=== PATIENT | female | born 1970 | race Hispanic/Latino ===

== ENCOUNTER 2018-07-26 05:05 | Emergency (ER) | payer OTHER ==
[~2018-07-26] VITALS: Ht 167.6 cm; Wt 73.6 kg
[~2018-07-26 05:05] MED LIST: AMOXICILLIN500 MG PO; BENADRYL 50MG C50 MG OR; BENADRYL25 M1 OR; EPIPEN0.3 MG IM; FLEXERIL OR; KEFLEX250 MG OR; LORTAB 5 OR; LORTAB 7.5 OR; MEDDOSEPAK OR; MEDDOSEPAK PO; NAPROSYN500 MG OR; NO HOMEMEDS; NO MEDS; PENICILLN VK500 MG OR; PERCOCET 5/325M1 TAB OR; PREDNISONE20 MG OR; REGLAN10 MG PO; TRAMADOL HCL50 MG OR; ZOFRAN4 MG OR; [UNRECOGNIZED DRUG - REMARK]; [UNRECOGNIZED DRUG - REMARK]
[2018-07-26 06:03] LABS: HEMATOCRIT 41.3 % (37.0-47.0); HEMOGLOBIN 12.8 g/dl (12.0-16.0); IMMATURE GRANULOCYTES 0.5 % (0.0-5.0); MEAN CELL VOLUME 84.8 fL CALC (80.0-100.0); MEAN CORPUSCULAR HGB 26.3 pG CALC (26.0-32.0); NEUT# 6.11 thou/uL (2.00-7.15); RED BLOOD COUNT 4.87 mill/uL (4.20-5.60); RED CELL DISTRI WIDTH 15.1 % (11.5-15.5)
[2018-07-26 06:04] LABS: URINE BILIRUBIN - DIPSTICK NEGATIVE (NEGATIVE); URINE BLOOD DIPSTICK SMALL (NEGATIVE); URINE COLOR YELLOW; URINE GLUCOSE - DIPSTICK NEGATIVE (NEGATIVE); URINE KETONE NEGATIVE (NEGATIVE); URINE NITRITE - DIPSTICK NEGATIVE (Negative); URINE PROTEIN - DIPSTICK NEGATIVE (NEG-TRACE); URINE UROBILINOGEN - DIPSTICK 0.2 E.U./dL (0.2)
[2018-07-26 06:29] LABS: URINE LEUK ESTERASE SMALL (NEGATIVE); URINE SQUAMOUS EPITHELIAL CELL FEW EPI/hpf (0-FEW)
[2018-07-26 06:30] LABS: ALBUMIN 4.7 g/dL (3.2-5.0); ALKALINE PHOSPHATASE 57 u/l (38-126); AMYLASE 33 u/l (30-110); ANION GAP 15 (6-22 (CALC)); BUN 10 mg/dL (7-17); BUN/CREATININE RATIO 19 (12-20 (CALC)); CARBON DIOXIDE 25 mmol/l (22-30); CHLORIDE 104 mmol/l (95-108); CREATININE 0.5 mg/dL (0.5-1.0); GFR > 60 ML/MIN (>=60 (CALC)); GFR FOR AFR.AMER. > 60 ML/MIN (>=60 (CALC)); LIPASE 39 u/l (23-300); SODIUM 139 mmol/l (137-146); TOTAL PROTEIN 8.1 g/dL (6.3-8.2)
[2018-07-26 06:33] LABS: BILIRUBIN, TOTAL 0.7 mg/dL (0.0-1.4); SGOT/AST 41 u/l (14-36)
[2018-07-26 07:19] LABS: BARBITURATES NEGATIVE (NEGATIVE); COCAINE NEGATIVE (NEGATIVE); METHADONE NEGATIVE (NEGATIVE); OXCYCODONE NEGATIVE (NEGATIVE); TETRAHYDROCANNABIONOL NEGATIVE (NEGATIVE); TRICYLIC ANTIDEPRESSANTS NEGATIVE (NEGATIVE)
[2018-07-26] MEDS ORDERED: KEFLEX500 M1 PO (07:22)
[2018-07-26] MEDS ORDERED: BENTYL10 MG PO (07:22)
[2018-07-26 07:31] VITALS: BP 109/68
== END 2018-07-26 07:34 | disposition home or self-care (01) ==
LOC: ED 05:05
PROVIDERS: Emergency Medicine
DX: N39.0 Urinary tract infection, site not specified (principal); K56.7 Ileus, unspecified; R10.12 Left upper quadrant pain; R11.2 Nausea with vomiting, unspecified; F17.210 Nicotine dependence, cigarettes, uncomplicated

== ENCOUNTER 2019-02-13 23:26 | Emergency (ER) | payer MEDICAID ==
[~2019-02-13] VITALS: Ht 167.6 cm; Wt 76.3 kg
[~2019-02-13 23:26] MED LIST changes: +BENTYL10 MG PO; +KEFLEX500 M1 PO
[2019-02-14 01:03] LABS: HEMATOCRIT 36.1 % (37.0-47.0); HEMOGLOBIN 11.5 g/dl (12.0-16.0); IMMATURE GRANULOCYTES 0.4 % (0.0-5.0); MEAN CELL VOLUME 80.6 fL CALC (80.0-100.0); MEAN CORPUSCULAR HGB 25.7 pG CALC (26.0-32.0); MEAN CORPUSCULAR HGB CONC 31.9 g/L CALC (32.0-36.0); NEUT# 5.38 thou/uL (2.00-7.15); RED BLOOD COUNT 4.48 mill/uL (4.20-5.60); RED CELL DISTRI WIDTH 15.8 % (11.5-15.5)
[2019-02-14 01:12] LABS: URINE BILIRUBIN - DIPSTICK NEGATIVE (NEGATIVE); URINE BLOOD DIPSTICK TRACE-INTACT (NEGATIVE); URINE COLOR YELLOW; URINE GLUCOSE - DIPSTICK NEGATIVE (NEGATIVE); URINE KETONE NEGATIVE (NEGATIVE); URINE LEUK ESTERASE NEGATIVE (NEGATIVE); URINE NITRITE - DIPSTICK NEGATIVE (Negative); URINE PH 6.5 (4.5-8.0); URINE PROTEIN - DIPSTICK NEGATIVE (NEG-TRACE); URINE UROBILINOGEN - DIPSTICK 0.2 E.U./dL (0.2)
[2019-02-14 01:23] LABS: ALBUMIN 4.3 g/dL (3.2-5.0); ALKALINE PHOSPHATASE 88 u/l (38-126); ANION GAP 13 (6-22 (CALC)); BUN 10 mg/dL (7-17); BUN/CREATININE RATIO 16 (12-20 (CALC)); CARBON DIOXIDE 22 mmol/l (22-30); CHLORIDE 107 mmol/l (95-108); CREATININE 0.6 mg/dL (0.5-1.0); GFR > 60 ML/MIN (>=60 (CALC)); GFR FOR AFR.AMER. > 60 ML/MIN (>=60 (CALC)); SGOT/AST 19 u/l (14-36); SODIUM 137 mmol/l (137-146); TOTAL PROTEIN 7.7 g/dL (6.3-8.2)
[2019-02-14 01:24] LABS: BILIRUBIN, TOTAL 0.2 mg/dL (0.0-1.4)
[2019-02-14] MEDS ORDERED: MEDDOSEPAK PO (01:53)
[2019-02-14] MEDS ORDERED: VISTARIL 50MG C50 M1 PO (01:53)
[2019-02-14 01:58] VITALS: BP 144/82
== END 2019-02-14 01:58 | disposition home or self-care (01) ==
LOC: ED 23:26
PROVIDERS: Emergency Medicine
DX: T78.40XA Allergy, unspecified, initial encounter (principal); F17.210 Nicotine dependence, cigarettes, uncomplicated; X58.XXXA Exposure to other specified factors, initial encounter

== ENCOUNTER 2019-02-25 | Emergency (ER) | payer MEDICAID ==
[~2019-02-25] MED LIST changes: +VISTARIL 50MG C50 M1 PO
[2019-02-25] MEDS ORDERED: SERTRALINE50 MG PO (14:41)
[2019-02-25] MEDS ORDERED: KEFLEX500 MG PO (15:07)
== END 2019-02-25 15:10 | disposition home or self-care (01) ==
DX: S30.861A Insect bite (nonvenomous) of abdominal wall, initial encounter (principal); L02.211 Cutaneous abscess of abdominal wall; F17.210 Nicotine dependence, cigarettes, uncomplicated; W57.XXXA Bitten or stung by nonvenomous insect and other nonvenomous arthropods, initial encounter; Y93.9 Activity, unspecified; Y92.009 Unspecified place in unspecified non-institutional (private) residence as the place of occurrence of the external cause

== ENCOUNTER 2019-04-15 | Emergency (ER) | payer MEDICAID ==
[~2019-04-15] MED LIST changes: +KEFLEX500 MG PO; +SERTRALINE50 MG PO
[2019-04-15 17:49] LABS: IMMATURE GRANULOCYTES 0.7 % (0.0-5.0); MEAN CELL VOLUME 82.6 fL CALC (80.0-100.0); MEAN CORPUSCULAR HGB 26.8 pG CALC (26.0-32.0); MEAN CORPUSCULAR HGB CONC 32.4 g/L CALC (32.0-36.0); NEUT# 7.7 thou/uL (2.00-7.15); RED BLOOD COUNT 4.48 mill/uL (4.20-5.60); RED CELL DISTRI WIDTH 17.5 % (11.5-15.5)
[2019-04-15 18:19] LABS: ALBUMIN 4.5 g/dL (3.2-5.0); ALKALINE PHOSPHATASE 79 u/l (38-126); ANION GAP 14 (6-22 (CALC)); BUN 7 mg/dL (7-17); BUN/CREATININE RATIO 14 (12-20 (CALC)); CARBON DIOXIDE 20 mmol/l (22-30); CHLORIDE 107 mmol/l (95-108); CREATININE 0.5 mg/dL (0.5-1.0); GFR > 60 ML/MIN (>=60 (CALC)); GFR FOR AFR.AMER. > 60 ML/MIN (>=60 (CALC)); SGOT/AST 27 u/l (14-36); SODIUM 137 mmol/l (137-146); TOTAL PROTEIN 8.3 g/dL (6.3-8.2)
[2019-04-15] MEDS ORDERED: MEDROXYPR AC10 M1 PO (18:19)
[2019-04-15] MEDS ORDERED: FERR SULFATE325 MG PO (18:19)
[2019-04-15] MEDS ORDERED: NITROFURANTOIN100 M1 PO (18:20)
[2019-04-15] MEDS ORDERED: MULTIVITAMI1 PO (18:21)
[2019-04-15 18:26] LABS: BILIRUBIN, TOTAL 0.4 mg/dL (0.0-1.4)
[2019-04-15 19:15] LABS: URINE BILIRUBIN - DIPSTICK NEGATIVE (NEGATIVE); URINE BLOOD DIPSTICK LARGE (NEGATIVE); URINE COLOR YELLOW; URINE GLUCOSE - DIPSTICK NEGATIVE (NEGATIVE); URINE KETONE NEGATIVE (NEGATIVE); URINE LEUK ESTERASE NEGATIVE (NEGATIVE); URINE NITRITE - DIPSTICK NEGATIVE (Negative); URINE PH 5.5 (4.5-8.0); URINE PROTEIN - DIPSTICK TRACE mg/dL (NEG-TRACE); URINE SPECIFIC GRAVITY 1.015; URINE UROBILINOGEN - DIPSTICK 0.2 E.U./dL (0.2)
[2019-04-15 19:35] LABS: URINE RBC TNTC RBC/hpf (0-5); URINE SQUAMOUS EPITHELIAL CELL FEW EPI/hpf (0-FEW)
[2019-04-15] MEDS ORDERED: PROVERA10 MG PO (19:50)
== END 2019-04-15 20:12 | disposition home or self-care (01) ==
PROVIDERS: Family Medicine
DX: N93.9 Abnormal uterine and vaginal bleeding, unspecified (principal); R42 Dizziness and giddiness; R53.1 Weakness; F17.210 Nicotine dependence, cigarettes, uncomplicated

== ENCOUNTER 2019-06-12 13:00 | Observation (INO) | payer MEDICAID ==
[~2019-06-12] VITALS: Ht 165.1 cm; Wt 77.3 kg
[~2019-06-12 13:00] MED LIST changes: +FERR SULFATE325 MG PO; +MEDROXYPR AC10 M1 PO; +MULTIVITAMI1 PO; +NITROFURANTOIN100 M1 PO; +PROVERA10 MG PO
--- NOTE | 2019-06-12 13:30 | NUR ---
RECIEVED CARE OF PATIENT. PT AO X 3. HAS BEEN MEDICATED FOR ALLERGIC REACTION RESULTING IN FACIAL SWELLING AND GENERAL BODY ITCHING. IV IN PLACE. MONITORS IN PLACE.
[2019-06-12 13:34] LABS: HEMATOCRIT 36.3 % (37.0-47.0); IMMATURE GRANULOCYTES 0.6 % (0.0-5.0); MEAN CELL VOLUME 80.7 fL CALC (80.0-100.0); MEAN CORPUSCULAR HGB 24.4 pG CALC (26.0-32.0); MEAN CORPUSCULAR HGB CONC 30.3 g/dL CAL (32.0-36.0); NEUT# 5.3 thou/uL (2.00-7.15); RED BLOOD COUNT 4.5 mill/uL (4.20-5.60); RED CELL DISTRI WIDTH 17.3 % (11.5-15.5)
[2019-06-12 13:45] LABS: ANION GAP 14 (6-22 (CALC)); BUN 7 mg/dL (7-17); BUN/CREATININE RATIO 15 (12-20 (CALC)); CARBON DIOXIDE 21 mmol/l (22-30); CHLORIDE 108 mmol/l (95-108); CREATININE 0.5 mg/dL (0.5-1.0); GFR > 60 ML/MIN (>=60 (CALC)); GFR FOR AFR.AMER. > 60 ML/MIN (>=60 (CALC)); POTASSIUM 4.8 mmol/l (3.5-5.1); SODIUM 138 mmol/l (137-146)
--- NOTE | 2019-06-12 14:39 | NUR ---
PT AMBULATORY TO BATHROOM. UA OBTAINED. PT REPORTS DECREASED SWELLING IN MOUTH AN FACE, NO DIFFICULTY SWALLOWING OR BREATHING AT THIS TIME
--- NOTE | 2019-06-12 15:30 | NUR ---
PT RESTING COMFORTABLY. AWAITING RESULTS
--- NOTE | 2019-06-12 16:30 | NUR ---
PT RESTING COMFORTABLY. NO COMPLAINTS AT THIS TIME
[2019-06-12] MEDS ORDERED: EPIPEN 2-P0.3 MG/0.3 IM (16:32)
[2019-06-12] MEDS ORDERED: PREDNISONE50 MG PO (16:32)
--- NOTE | 2019-06-12 17:30 | NUR ---
PT TO BATHROOM WITH A STEADY GAIT. PT REPORTS ITCHING TO RIGHT ARM, NO RASH NOTED. MD AND NURSE NOTIFIED.
--- NOTE | 2019-06-12 18:25 | NUR ---
PT REPORTS FEELING ITCHY. DR TOLEDO AT BEDSIDE
--- NOTE | 2019-06-12 19:00 | NUR ---
PT IV INFILTRATE ON LEFT FOREARM. NEW IV STARTED FOR EPI DRIP.
--- NOTE | 2019-06-12 19:05 | NUR ---
REPORT GIVEN TO GIANNA STONE
--- NOTE | 2019-06-12 19:10 | NUR ---
PT RESTING. CALM. STATES VERY ITCHY. IV STARTED. EPI DRIP HUNG.
--- NOTE | 2019-06-12 20:00 | NUR ---
VSS. RESP EASY REG. NAD. LUNGS CLEAR. NO ITCHING. FEELS BETTER.
--- NOTE | 2019-06-12 21:39 | NUR ---
VISITOR AT BEDSIDE. AWAITING ICU TO RECEIVE PT. VSS
--- NOTE | 2019-06-12 22:29 | NUR ---
REPORT TO SURINDER, RN/ICU. PT RESTING. FEELS BETTER. NAD. RESP EASY REG. NO ITCHING. EPI DRIP INFUSING.
[2019-06-13] VITALS (15 sets, daily range): BP systolic 104–139; BP diastolic 47–78
--- NOTE | 2019-06-13 00:15 | NUR ---
ICU CALLED...READY FOR PT.
--- NOTE | 2019-06-13 00:25 | NUR ---
TO FLOOR VIA STRETCHER WITH EPI DRIP INFUSING. SITE. GOOD. PT AMUBLATORY TO BED.
--- NOTE | 2019-06-13 00:30 | NUR ---
RECEIVED PT FROM ER. PT WALKED TO BED FROM ER STRETCHER.
--- NOTE | 2019-06-13 00:45 | NUR ---
PT AAOX3, DENIED SOB OR DIFFICULTY SWALLOWING. PT RELATED SHE FEELS A LITTLE JITTERY. #20IV TO R WRIST.
--- NOTE | 2019-06-13 01:50 | NUR ---
PT C/O PAIN TO R WRIST IV SITE. INSERTED #20 TO L HAND. D/C'D R WRIST IV SITE.
--- NOTE | 2019-06-13 04:00 | NUR ---
PT AWAKE AND ALERT. PT RELATED PAIN TO R WRIST DECREASED. NO SWELLING NOTED. DENIED SOB. CALL ROYAL IN REACH.
[2019-06-13 05:53] LABS: HEMATOCRIT 31.7 % (37.0-47.0); HEMOGLOBIN 9.7 g/dl (12.0-16.0); IMMATURE GRANULOCYTES 0.9 % (0.0-5.0); MEAN CELL VOLUME 80.7 fL CALC (80.0-100.0); MEAN CORPUSCULAR HGB 24.7 pG CALC (26.0-32.0); MEAN CORPUSCULAR HGB CONC 30.6 g/dL CAL (32.0-36.0); NEUT# 16.18 thou/uL (2.00-7.15); RED BLOOD COUNT 3.93 mill/uL (4.20-5.60); RED CELL DISTRI WIDTH 17.3 % (11.5-15.5)
--- NOTE | 2019-06-13 06:00 | NUR ---
PT AMB WITH ASSIST TO BR. RETURNED TO BED. CALL ROYAL IN REACH.
[2019-06-13 06:15] LABS: ANION GAP 14 (6-22 (CALC)); BUN 8 mg/dL (7-17); BUN/CREATININE RATIO 18 (12-20 (CALC)); CARBON DIOXIDE 18 mmol/l (22-30); CHLORIDE 110 mmol/l (95-108); CREATININE 0.5 mg/dL (0.5-1.0); GFR > 60 ML/MIN (>=60 (CALC)); GFR FOR AFR.AMER. > 60 ML/MIN (>=60 (CALC)); POTASSIUM 4.2 mmol/l (3.5-5.1); SODIUM 138 mmol/l (137-146)
--- NOTE | 2019-06-13 06:45 | NUR ---
RECIEVED REPORT FROM [facility]. ASSUMED PT CARE.
--- NOTE | 2019-06-13 07:15 | NUR ---
PT A&OX4, ABLE TO MAKE NEEDS KNOWN. PT DENIES CP, SOB OR DISTRESS AT THIS TIME. PT REMAINS SR ON TELEMETRY, HR 92. RESPIRATIONS EVEN/UNLABORED, SAO2@99%RA. ABDOMEN SOFT,NON-TENDER, BSX4 ACTIVE. LBM 4-13-20. 20G TO LH INTACT, NO S/S OF INFILTRATION OR INFECTION. CALL LIGHT IN REACH. WILL MONITOR.
--- NOTE | 2019-06-13 08:00 | NUR ---
DIETARY ON UNIT, BREAKFAST TRAY SET UP.
--- NOTE | 2019-06-13 09:00 | NUR ---
DR. PATTEN AT [facility] FOR ASSESSMENT AND TO DISCUSS PLAN OF CARE. NEW ORDERS RECIEVED.
--- NOTE | 2019-06-13 09:25 | NUR ---
PT REPORTS HANDS STARTING TO ITCH, DR. PATTEN NOTIFIED. NEW ORDERS RECIEVED. CALL LIGHT IN REACH. WILL MONITOR.
--- NOTE | 2019-06-13 10:25 | NUR ---
PT RESTING IN BED WITH EYES CLOSED. RESPIRATIONS EVEN/UNLABORED. NO S/S OF DISTRESS NOTED AT THIS TIME.
--- NOTE | 2019-06-13 12:00 | NUR ---
PT ASKING WHEN SHE CAN GO HOME. PT REMINDED THAT DR. PATTEN STATED IT WAS A POSSIBILITY THIS EVENING. WILL UPDATE AVAILABLE.
--- NOTE | 2019-06-13 13:35 | NUR ---
PT ASSITED TO RECLINER. PT WITH SLOW STEADY GAIT NOTED.
--- NOTE | 2019-06-13 15:53 | NUR ---
PT REMAINS SITTING IN RECLINER, OFFERS NO COMPLAINTS AT THIS TIME. CALL LIGHT IN REACH. WILL MONITOR.
[2019-06-13] MEDS ORDERED: PREDNISONE50 MG PO (16:31)
[2019-06-13] MEDS ORDERED: EPIPEN 2-P0.3 MG/0.3 IM (16:31)
[2019-06-13] MEDS ORDERED: BENADRYL 50MG C50 MG PO (16:31)
--- NOTE | 2019-06-13 16:50 | NUR ---
IV site discontinued, cath intact. No edema , no redness, voices no discomfort.
--- NOTE | 2019-06-13 17:30 | NUR ---
Discharge instructions given. Patient verbalizes understanding of same. Discharged in stable condition via Ambulatory to Home with family. All belongings sent with pt. PAPER PRESCRIPTION SENT HOME WITH PT.
== END 2019-06-13 17:30 | disposition home or self-care (01) ==
LOC: ED 13:00 → ED-I 18:10 → ED 18:28 → ED-I 18:29 → ICU 19:30
PROVIDERS: Family Medicine; ADMIT Internal Medicine; ATTEND Internal Medicine
DX: T78.40XA Allergy, unspecified, initial encounter (principal); F17.200 Nicotine dependence, unspecified, uncomplicated; X58.XXXA Exposure to other specified factors, initial encounter; Z91.09 Other allergy status, other than to drugs and biological substances

== ENCOUNTER 2019-08-14 23:44 | Emergency (ER) | payer MEDICAID ==
[~2019-08-14] VITALS: Ht 157.5 cm; Wt 75.9 kg
[~2019-08-14 23:44] MED LIST changes: +BENADRYL 50MG C50 MG PO; +EPIPEN 2-P0.3 MG/0.3 IM; +PREDNISONE50 MG PO
[2019-08-15] MEDS ORDERED: MAGNESIUM296 ML/BTL PO (00:27)
[2019-08-15 00:40] VITALS: BP 134/93
== END 2019-08-15 00:40 | disposition home or self-care (01) ==
LOC: ED 23:44
DX: K59.00 Constipation, unspecified (principal); K64.9 Unspecified hemorrhoids; D64.9 Anemia, unspecified; F17.210 Nicotine dependence, cigarettes, uncomplicated; Z90.710 Acquired absence of both cervix and uterus

== ENCOUNTER 2019-12-13 16:32 | Emergency (ER) | payer MEDICAID ==
[~2019-12-13] VITALS: Ht 157.5 cm; Wt 77.0 kg
[~2019-12-13 16:32] MED LIST changes: +MAGNESIUM296 ML/BTL PO
[2019-12-13 17:15] LABS: IMMATURE GRANULOCYTES 0.5 % (0.0-5.0); MEAN CORPUSCULAR HGB 26.2 pG CALC (26.0-32.0); MEAN CORPUSCULAR HGB CONC 31.6 g/dL CAL (32.0-36.0); NEUT# 5.91 thou/uL (2.00-7.15); RED BLOOD COUNT 4.77 mill/uL (4.20-5.60); RED CELL DISTRI WIDTH 16.7 % (11.5-15.5)
[2019-12-13 17:21] LABS: HEMATOCRIT 39.6 % (37.0-47.0); HEMOGLOBIN 12.5 g/dl (12.0-16.0)
[2019-12-13 17:48] LABS: ALBUMIN 4.4 g/dL (3.2-5.0); ALKALINE PHOSPHATASE 78 u/l (38-126); AMYLASE 45 u/l (30-110); ANION GAP 11 (6-22 (CALC)); BILIRUBIN, TOTAL 0.3 mg/dL (0.0-1.4); BUN 5 mg/dL (7-17); BUN/CREATININE RATIO 9 (12-20 (CALC)); CARBON DIOXIDE 24 mmol/l (22-30); CHLORIDE 105 mmol/l (95-108); CREATININE 0.6 mg/dL (0.5-1.0); GFR > 60 ML/MIN (>=60 (CALC)); GFR FOR AFR.AMER. > 60 ML/MIN (>=60 (CALC)); LIPASE 45 u/l (23-300); POTASSIUM 4.3 mmol/l (3.5-5.1); SGOT/AST 17 u/l (14-36); SODIUM 136 mmol/l (137-146); TOTAL PROTEIN 7.7 g/dL (6.3-8.2)
[2019-12-13] MEDS ORDERED: HYDROXYZINE HYD25 MG (17:52)
[2019-12-13] MEDS ORDERED: ZOLOFT25 MG PO (17:53)
[2019-12-13] MEDS ORDERED: BENADRYL 25MG C25 MG PO (17:53)
[2019-12-13 17:58] LABS: MYOGLOBIN 15 ng/mL (0 - 62)
[2019-12-13 18:14] LABS: URINE BILIRUBIN - DIPSTICK NEGATIVE (NEGATIVE); URINE BLOOD DIPSTICK SMALL (NEGATIVE); URINE COLOR YELLOW; URINE GLUCOSE - DIPSTICK NEGATIVE (NEGATIVE); URINE KETONE NEGATIVE (NEGATIVE); URINE LEUK ESTERASE NEGATIVE (NEGATIVE); URINE NITRITE - DIPSTICK NEGATIVE (Negative); URINE PH 5.5 (4.5-8.0); URINE PROTEIN - DIPSTICK NEGATIVE (NEG-TRACE); URINE SPECIFIC GRAVITY >=1.030; URINE UROBILINOGEN - DIPSTICK 0.2 E.U./dL (0.2)
[2019-12-13 18:24] LABS: URINE SQUAMOUS EPITHELIAL CELL FEW EPI/hpf (0-FEW); URINE WBC 0-2 WBC/hpf (0-5)
[2019-12-13 19:30] VITALS: BP 145/73
[2019-12-13] MEDS ORDERED: HYDROCO/APAP1 TA9 PO (19:31)
== END 2019-12-13 19:55 | disposition home or self-care (01) ==
LOC: ED 16:32
PROVIDERS: Emergency Medicine
DX: N23 Unspecified renal colic (principal); R31.29 Other microscopic hematuria; F17.200 Nicotine dependence, unspecified, uncomplicated

== ENCOUNTER 2020-02-27 18:18 | Emergency (ER) | payer MEDICAID ==
[~2020-02-27] VITALS: Ht 157.5 cm; Wt 81.0 kg
[~2020-02-27 18:18] MED LIST changes: +BENADRYL 25MG C25 MG PO; +HYDROCO/APAP1 TA9 PO; +HYDROXYZINE HYD25 MG; +ZOLOFT25 MG PO
[2020-02-27] MEDS ORDERED: PROAIR HFA108 MCG/AC IN (18:52)
[2020-02-27] MEDS ORDERED: DOXYCYCL HYC100 MG PO (18:53)
[2020-02-27 19:12] LABS: HEMATOCRIT 41.7 % (37.0-47.0); HEMOGLOBIN 13.4 g/dl (12.0-16.0); IMMATURE GRANULOCYTES 0.7 % (0.0-5.0); MEAN CORPUSCULAR HGB 28.3 pG CALC (26.0-32.0); MEAN CORPUSCULAR HGB CONC 32.1 g/dL CAL (32.0-36.0); NEUT# 7.94 thou/uL (2.00-7.15); RED BLOOD COUNT 4.73 mill/uL (4.20-5.60); RED CELL DISTRI WIDTH 14.6 % (11.5-15.5)
[2020-02-27 19:21] LABS: ALBUMIN 4.5 g/dL (3.2-5.0); ALKALINE PHOSPHATASE 79 u/l (38-126); ANION GAP 14 (6-22 (CALC)); BILIRUBIN, TOTAL 0.3 mg/dL (0.0-1.4); BUN 5 mg/dL (7-17); BUN/CREATININE RATIO 8 (12-20 (CALC)); CARBON DIOXIDE 21 mmol/l (22-30); CHLORIDE 108 mmol/l (95-108); CREATININE 0.6 mg/dL (0.5-1.0); GFR > 60 ML/MIN (>=60 (CALC)); GFR FOR AFR.AMER. > 60 ML/MIN (>=60 (CALC)); SGOT/AST 23 u/l (14-36); SODIUM 139 mmol/l (137-146); TOTAL PROTEIN 8.1 g/dL (6.3-8.2)
[2020-02-27 19:24] LABS: MEAN CELL VOLUME 88.2 fL CALC (80.0-100.0)
[2020-02-27 19:57] LABS: MYOGLOBIN 14 ng/mL (0 - 62)
[2020-02-27] MEDS ORDERED: AMOXICILLIN875 MG PO (21:08)
[2020-02-27] MEDS ORDERED: FLOXIN OTIC0.3 % AD (21:08)
[2020-02-27] MEDS ORDERED: FLONASE AL50 MCG/ACT (21:08)
[2020-02-27 21:47] VITALS: BP 148/82
== END 2020-02-27 21:55 | disposition home or self-care (01) ==
LOC: ED 18:18
PROVIDERS: Emergency Medicine; Family Medicine
DX: J32.9 Chronic sinusitis, unspecified (principal); H66.91 Otitis media, unspecified, right ear; R07.9 Chest pain, unspecified; J45.909 Unspecified asthma, uncomplicated; F32.9 Major depressive disorder, single episode, unspecified; F17.200 Nicotine dependence, unspecified, uncomplicated; Z20.828 Contact with and (suspected) exposure to other viral communicable diseases

== ENCOUNTER 2020-07-24 23:09 | Emergency (ER) | payer MEDICAID ==
[~2020-07-24] VITALS: Ht 162.6 cm; Wt 75.0 kg
[~2020-07-24 23:09] MED LIST changes: +AMOXICILLIN875 MG PO; +DOXYCYCL HYC100 MG PO; +FLONASE AL50 MCG/ACT; +FLOXIN OTIC0.3 % AD; +PROAIR HFA108 MCG/AC IN
[2020-07-25] MEDS ORDERED: ZOFRAN4 MG/TAB PO (00:07)
[2020-07-25 00:52] VITALS: BP 155/82
== END 2020-07-25 01:12 | disposition home or self-care (01) ==
LOC: ED 23:09
DX: J32.9 Chronic sinusitis, unspecified (principal); R11.2 Nausea with vomiting, unspecified; F32.9 Major depressive disorder, single episode, unspecified; F17.200 Nicotine dependence, unspecified, uncomplicated

== ENCOUNTER 2020-08-08 16:38 | Emergency (ER) | payer MEDICAID ==
[~2020-08-08] VITALS: Ht 162.6 cm; Wt 68.2 kg
[~2020-08-08 16:38] MED LIST changes: +ZOFRAN4 MG/TAB PO
[2020-08-08 17:26] LABS: HEMOGLOBIN 13.4 g/dl (12.0-16.0); MEAN CELL VOLUME 89.7 fL CALC (80.0-100.0); MEAN CORPUSCULAR HGB CONC 33.5 g/dL CAL (32.0-36.0); NEUT# 4.59 thou/uL (2.00-7.15); RED BLOOD COUNT 4.46 mill/uL (4.20-5.60); RED CELL DISTRI WIDTH 13.2 % (11.5-15.5)
[2020-08-08 17:39] LABS: ALBUMIN 4.2 g/dL (3.2-5.0); ALKALINE PHOSPHATASE 74 u/l (38-126); ANION GAP 12 (6-22 (CALC)); BILIRUBIN, TOTAL 0.4 mg/dL (0.0-1.4); BUN 5 mg/dL (7-17); BUN/CREATININE RATIO 9 (12-20 (CALC)); CARBON DIOXIDE 24 mmol/l (22-30); CHLORIDE 103 mmol/l (95-108); CREATININE 0.5 mg/dL (0.5-1.0); GFR > 60 ML/MIN (>=60 (CALC)); GFR FOR AFR.AMER. > 60 ML/MIN (>=60 (CALC)); POTASSIUM 4.1 mmol/l (3.5-5.1); SGOT/AST 22 u/l (14-36); SODIUM 135 mmol/l (137-146); TOTAL PROTEIN 7.9 g/dL (6.3-8.2)
[2020-08-08] MEDS ORDERED: KEFLEX500 MG PO (17:53)
[2020-08-08 17:57] VITALS: BP 176/93
== END 2020-08-08 18:00 | disposition home or self-care (01) ==
LOC: ED 16:38
PROVIDERS: Emergency Medicine
DX: J06.9 Acute upper respiratory infection, unspecified (principal); J02.9 Acute pharyngitis, unspecified; F32.9 Major depressive disorder, single episode, unspecified; F17.210 Nicotine dependence, cigarettes, uncomplicated; Z20.822 Contact with and (suspected) exposure to COVID-19

== ENCOUNTER 2020-08-11 09:59 | Emergency (ER) | payer MEDICAID ==
[~2020-08-11] VITALS: Ht 162.6 cm; Wt 78.0 kg
[2020-08-11 11:05] LABS: HEMATOCRIT 40.1 % (37.0-47.0); HEMOGLOBIN 12.9 g/dl (12.0-16.0); MEAN CELL VOLUME 92.6 fL CALC (80.0-100.0); MEAN CORPUSCULAR HGB 29.8 pG CALC (26.0-32.0); MEAN CORPUSCULAR HGB CONC 32.2 g/dL CAL (32.0-36.0); NEUT# 5.11 thou/uL (2.00-7.15); RED BLOOD COUNT 4.33 mill/uL (4.20-5.60); RED CELL DISTRI WIDTH 13.4 % (11.5-15.5)
[2020-08-11 11:10] LABS: URINE BILIRUBIN - DIPSTICK NEGATIVE (NEGATIVE); URINE BLOOD DIPSTICK SMALL (NEGATIVE); URINE COLOR YELLOW; URINE GLUCOSE - DIPSTICK NEGATIVE (NEGATIVE); URINE KETONE NEGATIVE (NEGATIVE); URINE LEUK ESTERASE NEGATIVE (NEGATIVE); URINE PROTEIN - DIPSTICK NEGATIVE (NEG-TRACE); URINE SPECIFIC GRAVITY 1.015; URINE UROBILINOGEN - DIPSTICK 0.2 E.U./dL (0.2)
[2020-08-11 11:14] LABS: URINE NITRITE - DIPSTICK NEGATIVE (Negative)
[2020-08-11 11:15] LABS: URINE EPITHELIAL CELLS FEW EPI/hpf (0-FEW)
[2020-08-11 11:20] LABS: ALBUMIN 4.1 g/dL (3.2-5.0); ALKALINE PHOSPHATASE 66 u/l (38-126); ANION GAP 9 (6-22 (CALC)); BILIRUBIN, TOTAL 0.4 mg/dL (0.0-1.4); BUN 6 mg/dL (7-17); BUN/CREATININE RATIO 11 (12-20 (CALC)); CARBON DIOXIDE 25 mmol/l (22-30); CHLORIDE 105 mmol/l (95-108); CREATININE 0.5 mg/dL (0.5-1.0); GFR > 60 ML/MIN (>=60 (CALC)); GFR FOR AFR.AMER. > 60 ML/MIN (>=60 (CALC)); LIPASE 59 u/l (23-300); POTASSIUM 3.7 mmol/l (3.5-5.1); SGOT/AST 27 u/l (14-36); SODIUM 135 mmol/l (137-146); TOTAL PROTEIN 7.8 g/dL (6.3-8.2)
[2020-08-11] MEDS ORDERED: MEDDOSEPAK PO (13:01)
[2020-08-11] MEDS ORDERED: AMOX/K CLAV875 M1 PO (13:01)
[2020-08-11] MEDS ORDERED: ROBITUSSIN AC10 ML PO (13:01)
[2020-08-11 13:20] VITALS: BP 150/79
== END 2020-08-11 13:22 | disposition home or self-care (01) ==
LOC: ED 09:59
DX: J40 Bronchitis, not specified as acute or chronic (principal); F32.9 Major depressive disorder, single episode, unspecified; F17.200 Nicotine dependence, unspecified, uncomplicated; Z88.1 Allergy status to other antibiotic agents; Z88.2 Allergy status to sulfonamides; Z20.822 Contact with and (suspected) exposure to COVID-19

== ENCOUNTER 2020-10-06 19:23 | Emergency (ER) | payer MEDICAID ==
[~2020-10-06 19:23] MED LIST changes: +AMOX/K CLAV875 M1 PO; +ROBITUSSIN AC10 ML PO
[2020-10-06 20:10] LABS: URINE BILIRUBIN - DIPSTICK NEGATIVE (NEGATIVE); URINE BLOOD DIPSTICK TRACE-INTACT (NEGATIVE); URINE CLARITY CLEAR; URINE COLOR YELLOW; URINE GLUCOSE - DIPSTICK NEGATIVE (NEGATIVE); URINE KETONE NEGATIVE (NEGATIVE); URINE LEUK ESTERASE NEGATIVE (Negative); URINE NITRITE - DIPSTICK NEGATIVE (Negative); URINE PH 7.5 (4.5-8.0); URINE PROTEIN - DIPSTICK NEGATIVE (NEG-TRACE); URINE UROBILINOGEN - DIPSTICK 0.2 E.U./dL (0.2)
[2020-10-06 20:56] LABS: HEMATOCRIT 40.7 % (37.0-47.0); HEMOGLOBIN 13.3 g/dl (12.0-16.0); IMMATURE GRANULOCYTES 0.4 % (0.0-5.0); MEAN CELL VOLUME 93.1 fL CALC (80.0-100.0); MEAN CORPUSCULAR HGB 30.4 pG CALC (26.0-32.0); MEAN CORPUSCULAR HGB CONC 32.7 g/dL CAL (32.0-36.0); NEUT# 5.13 thou/uL (2.00-7.15); RED BLOOD COUNT 4.37 mill/uL (4.20-5.60); RED CELL DISTRI WIDTH 12.9 % (11.5-15.5)
[2020-10-06 21:13] LABS: ALKALINE PHOSPHATASE 71 u/l (38-126); AMYLASE 37 u/l (30-110); ANION GAP 12 (6-22 (CALC)); BUN 7 mg/dL (7-17); BUN/CREATININE RATIO 14 (12-20 (CALC)); CARBON DIOXIDE 22 mmol/l (22-30); CHLORIDE 106 mmol/l (95-108); CREATININE 0.5 mg/dL (0.5-1.0); GFR > 60 ML/MIN (>=60 (CALC)); GFR FOR AFR.AMER. > 60 ML/MIN (>=60 (CALC)); SGOT/AST 17 u/l (14-36); SODIUM 136 mmol/l (137-146); TOTAL PROTEIN 7.1 g/dL (6.3-8.2)
[2020-10-06 21:16] LABS: BILIRUBIN, TOTAL 0.2 mg/dL (0.0-1.4)
[2020-10-06] MEDS ORDERED: ZITHROMAX250 MG PO (22:47)
[2020-10-06] MEDS ORDERED: DEXAMETHASON6 MG PO (22:47)
[2020-10-07 01:01] VITALS: BP 142/81
== END 2020-10-07 01:40 | disposition home or self-care (01) ==
LOC: ED 19:23
PROVIDERS: Emergency Medicine
DX: R10.30 Lower abdominal pain, unspecified (principal); F32.9 Major depressive disorder, single episode, unspecified; F17.200 Nicotine dependence, unspecified, uncomplicated
CPT/HCPCS: Q9967

== ENCOUNTER 2021-01-17 23:18 | Emergency (ER) | payer OTHER ==
[~2021-01-17] VITALS: Ht 162.6 cm; Wt 78.0 kg
[~2021-01-17 23:18] MED LIST changes: +DEXAMETHASON6 MG PO; +ZITHROMAX250 MG PO
[2021-01-17] MEDS ORDERED: DOXYCYCL HYC100 MG PO (23:45)
[2021-01-18 00:06] VITALS: BP 150/74
== END 2021-01-18 00:17 | disposition home or self-care (01) ==
LOC: ED 23:18
DX: L72.9 Follicular cyst of the skin and subcutaneous tissue, unspecified (principal); F17.200 Nicotine dependence, unspecified, uncomplicated

== ENCOUNTER 2021-02-07 13:54 | Emergency (ER) | payer OTHER ==
[~2021-02-07] VITALS: Ht 165.1 cm; Wt 78.0 kg
[2021-02-07] MEDS ORDERED: IBUPROFEN600 MG PO (15:38)
[2021-02-07] MEDS ORDERED: FLEXERIL5 M1 PO (15:38)
[2021-02-07 16:13] VITALS: BP 144/87
== END 2021-02-07 16:18 | disposition home or self-care (01) | DRG 90 ==
LOC: ED 13:54
DX: S06.0X0A Concussion without loss of consciousness, initial encounter (principal); S16.1XXA Strain of muscle, fascia and tendon at neck level, initial encounter; I10 Essential (primary) hypertension; F32.A Depression, unspecified; F17.200 Nicotine dependence, unspecified, uncomplicated; V49.40XA Driver injured in collision with unspecified motor vehicles in traffic accident, initial encounter
CPT/HCPCS: L0120

== ENCOUNTER 2021-03-11 18:05 | Emergency (ER) | payer OTHER ==
[~2021-03-11] VITALS: Ht 165.1 cm; Wt 81.0 kg
[~2021-03-11 18:05] MED LIST changes: +FLEXERIL5 M1 PO; +IBUPROFEN600 MG PO
[2021-03-11] MEDS ORDERED: TORADOL PO (21:35)
[2021-03-11] MEDS ORDERED: LIDOCAINE PATCH 55 % TD (21:35)
[2021-03-11] MEDS ORDERED: METHOCARBAMOL750 MG PO (21:35)
[2021-03-11] MEDS ORDERED: MEDDOSEPAK PO (21:35)
[2021-03-11 21:37] VITALS: BP 142/93
== END 2021-03-11 21:44 | disposition home or self-care (01) ==
LOC: ED 18:05
DX: M54.41 Lumbago with sciatica, right side (principal); M54.6 Pain in thoracic spine; I10 Essential (primary) hypertension; F32.A Depression, unspecified; F17.210 Nicotine dependence, cigarettes, uncomplicated

== ENCOUNTER 2022-01-07 02:50 | Emergency (ER) | payer OTHER ==
[~2022-01-07] VITALS: Ht 165.1 cm; Wt 68.0 kg
[~2022-01-07 02:50] MED LIST changes: +LIDOCAINE PATCH 55 % TD; +METHOCARBAMOL750 MG PO; +TORADOL PO
[2022-01-07] MEDS ORDERED: CIPRODEX1 ML OT (03:18)
[2022-01-07 03:26] VITALS: BP 163/87
== END 2022-01-07 03:37 | disposition home or self-care (01) ==
LOC: ED 02:50
DX: T16.1XXA Foreign body in right ear, initial encounter (principal); I10 Essential (primary) hypertension; F32.A Depression, unspecified; F17.200 Nicotine dependence, unspecified, uncomplicated; X58.XXXA Exposure to other specified factors, initial encounter

== ENCOUNTER 2022-02-06 07:31 | Emergency (ER) | payer OTHER ==
[~2022-02-06] VITALS: Ht 165.1 cm; Wt 72.7 kg
[~2022-02-06 07:31] MED LIST changes: +CIPRODEX1 ML OT
[2022-02-06 07:41] VITALS: BP 169/93
[2022-02-06 08:01] VITALS: BP 155/79
[2022-02-06 08:15] VITALS: BP 141/90
[2022-02-06 08:31] VITALS: BP 155/89
[2022-02-06] MEDS ORDERED: PENICILLIN V P500 MG PO ×2 (08:32→10:26)
[2022-02-06 08:46] VITALS: BP 142/89
== END 2022-02-06 08:50 | disposition home or self-care (01) ==
LOC: ED 07:31
DX: K02.9 Dental caries, unspecified (principal); I10 Essential (primary) hypertension; F32.A Depression, unspecified; F17.210 Nicotine dependence, cigarettes, uncomplicated

== ENCOUNTER 2022-07-02 22:39 | Emergency (ER) | payer OTHER ==
[~2022-07-02] VITALS: Ht 165.1 cm; Wt 76.0 kg
[~2022-07-02 22:39] MED LIST changes: +PENICILLIN V P500 MG PO
[2022-07-02 22:44] VITALS: BP 171/87
[2022-07-02 23:00] VITALS: BP 168/94
[2022-07-02 23:15] VITALS: BP 140/85
[2022-07-02 23:20] LABS: BASO% 0.3 % (0-3); EOS% 1.7 % (0-8); HEMOGLOBIN 14.9 g/dl (12.0-16.0); IMMATURE GRANULOCYTES 0.3 % (0.0-5.0); MEAN CELL VOLUME 92.5 fL CALC (80.0-100.0); MEAN CORPUSCULAR HGB 29.4 pG CALC (26.0-32.0); MEAN CORPUSCULAR HGB CONC 31.8 g/dL CAL (32.0-36.0); MONO% 7.8 % (2-13); NEUT# 6.67 thou/uL (2.00-7.15); NEUT% 64.9 % (42-76); RED BLOOD COUNT 5.06 mill/uL (4.20-5.60); RED CELL DISTRI WIDTH 13.3 % (11.5-15.5)
[2022-07-02 23:41] VITALS: BP 155/89
[2022-07-02 23:45] VITALS: BP 156/90
[2022-07-02 23:52] LABS: URINE BILIRUBIN - DIPSTICK NEGATIVE (NEGATIVE); URINE BLOOD DIPSTICK SMALL (NEGATIVE); URINE COLOR YELLOW; URINE GLUCOSE - DIPSTICK NEGATIVE (NEGATIVE); URINE KETONE NEGATIVE (NEGATIVE); URINE LEUK ESTERASE NEGATIVE (NEGATIVE); URINE PH 5.5 (4.5-8.0); URINE PROTEIN - DIPSTICK NEGATIVE (NEG-TRACE); URINE UROBILINOGEN - DIPSTICK 0.2 E.U./dL (0.2)
[2022-07-02 23:56] LABS: URINE NITRITE - DIPSTICK NEGATIVE (Negative)
[2022-07-02 23:59] LABS: HEMATOCRIT 46.8 % (37.0-47.0)
[2022-07-03 00:08] LABS: ALBUMIN 4.2 g/dL (3.2-5.0); ALKALINE PHOSPHATASE 57 u/l (38-126); ANION GAP 10 (6-22 (CALC)); BUN 6 mg/dL (7-17); BUN/CREATININE RATIO 10 (12-20 (CALC)); CARBON DIOXIDE 26 mmol/l (22-30); CHLORIDE 108 mmol/l (95-108); CREATININE 0.6 mg/dL (0.5-1.0); GFR FOR AFR.AMER. > 60 ML/MIN (>=60 (CALC)); GFR OTHER RACES > 60 ML/MIN (>=60 (CALC)); POTASSIUM 4.1 mmol/l (3.5-5.1); SGOT/AST 18 u/l (14-36); SODIUM 141 mmol/l (137-146)
[2022-07-03 00:12] LABS: URINE SQUAMOUS EPITHELIAL CELL FEW EPI/hpf (0-FEW)
[2022-07-03 00:17] LABS: BILIRUBIN, TOTAL 0.3 mg/dL (0.02-1.3)
[2022-07-03 00:45] VITALS: BP 156/90
[2022-07-03] MEDS ORDERED: AMOX/K CLAV875 M1 PO (00:47)
[2022-07-03] MEDS ORDERED: TORADOL PO (00:47)
== END 2022-07-03 00:53 | disposition home or self-care (01) ==
LOC: ED 22:39
PROVIDERS: Family Medicine
DX: J32.9 Chronic sinusitis, unspecified (principal); I10 Essential (primary) hypertension; F32.A Depression, unspecified; F17.200 Nicotine dependence, unspecified, uncomplicated

== ENCOUNTER 2023-09-08 18:42 | Emergency (ER) | payer SELFPAY ==
[~2023-09-08] VITALS: Ht 162.6 cm; Wt 74.8 kg
[~2023-09-08 18:42] MED LIST changes: +BP MED; +COMPAZINE10 MG PO; +IMODIUM2 MG PO
[2023-09-08 19:01] VITALS: BP 127/69
[2023-09-08 19:15] VITALS: BP 122/55
[2023-09-08 19:45] VITALS: BP 143/70
[2023-09-08] MEDS ORDERED: DiphenhydrAMINE HCL 50 MG/ML SDV IV ONE (19:50)
[2023-09-08] MEDS ORDERED: methylPREDNISolone SODIUM SUCC 125 MG/2 ML SDV IV ONE (19:50)
[2023-09-08] MEDS ORDERED: FAMOTIDINE 10MG/ML 2ML SDV IV ONE (19:50)
[2023-09-08 19:59] LABS: BASO% 0.3 % (0-3); EOS% 0.5 % (0-8); HEMOGLOBIN 12.8 g/dl (12.0-16.0); IMMATURE GRANULOCYTES 0.6 % (0.0-5.0); LYMPH% 30.6 % (15-41); MEAN CELL VOLUME 93.1 fL CALC (80.0-100.0); MEAN CORPUSCULAR HGB 30.5 pG CALC (26.0-32.0); MEAN CORPUSCULAR HGB CONC 32.8 g/dL CAL (32.0-36.0); MONO% 15.2 % (2-13); NEUT# 3.46 thou/uL (2.00-7.15); NEUT% 52.8 % (42-76); RED BLOOD COUNT 4.19 mill/uL (4.20-5.60); RED CELL DISTRI WIDTH 13.2 % (11.5-15.5)
[2023-09-08 20:00] LABS: ALBUMIN 4.1 g/dL (3.2-5.0); ALKALINE PHOSPHATASE 59 u/l (38-126); ANION GAP 7 (6-22 (CALC)); BILIRUBIN, TOTAL 0.4 mg/dL (0.02-1.3); BUN 5 mg/dL (7-17); BUN/CREATININE RATIO 7 (12-20 (CALC)); CARBON DIOXIDE 27 mmol/l (22-30); CHLORIDE 108 mmol/l (95-108); CPK 61 u/l (30-135); CREATININE 0.7 mg/dL (0.5-1.0); ESTIMATED GFR 105 ML/MIN (>=90 (CALC)); LIPASE 52 u/l (23-300); POTASSIUM 3.2 mmol/l (3.5-5.1); SGOT/AST 20 u/l (14-36); SODIUM 139 mmol/l (137-146); TOTAL PROTEIN 7.2 g/dL (6.3-8.2)
[2023-09-08 20:14] LABS: D-DIMER 0.63 mg/L (0.19-0.60)
[2023-09-08 20:20] LABS: ACT PARTIAL THROMBO TIME 32.2 SECONDS (20.0-32.5)
[2023-09-08] MEDS ORDERED: POTASSIUM CHLORIDE 20 MEQ/TAB PO ONE (20:40)
[2023-09-08] MEDS ORDERED: MAGNESIUM SULFATE HEPTAHYDRATE 2 GM in SODIUM CHLORIDE 0.9% 50 ML IV ONE (20:40)
[2023-09-09 01:55] LABS: URINE BILIRUBIN - DIPSTICK Negative (NEGATIVE); URINE BLOOD DIPSTICK Moderate (NEGATIVE); URINE GLUCOSE - DIPSTICK Negative (NEGATIVE); URINE KETONE Negative (NEGATIVE); URINE LEUK ESTERASE Negative (NEGATIVE); URINE NITRITE - DIPSTICK Negative (Negative); URINE PH 5.5 (4.5-8.0); URINE PROTEIN - DIPSTICK Negative (NEG-TRACE); URINE SPECIFIC GRAVITY 1.015; URINE UROBILINOGEN - DIPSTICK 0.2 E.U./dL (0.2)
[2023-09-09 02:01] LABS: URINE COLOR Yellow
[2023-09-09 02:02] LABS: URINE SQUAMOUS EPITHELIAL CELL FEW EPI/hpf (0-FEW); URINE WBC 0-2 WBC/hpf (0-5)
[2023-09-09] MEDS ORDERED: PREDNISONE20 MG PO (02:37)
[2023-09-09] MEDS ORDERED: KLOR-CON M2020 MEQ PO (02:37)
[2023-09-09] MEDS ORDERED: VENTOLIN HFA108 MCG IN (02:37)
[2023-09-09 03:08] VITALS: BP 143/70
[2023-09-09] MEDS ORDERED: KETOROLAC TROMETHAMINE 30 MG/ML SDV IV ONE (23:55)
[2023-09-09] MEDS ORDERED: ACETAMINOPHEN 500 MG TAB PO ONE (23:55)
== END 2023-09-09 03:08 | disposition home or self-care (01) | DRG 179 ==
LOC: ED 18:42
PROVIDERS: Internal Medicine
DX: U07.1 COVID-19 (principal); R05.9 Cough, unspecified; R10.12 Left upper quadrant pain; E87.6 Hypokalemia; I10 Essential (primary) hypertension; F17.290 Nicotine dependence, other tobacco product, uncomplicated
CPT/HCPCS: Q9967